=== PATIENT | male | born 1985 | race Caucasian/White ===

== ENCOUNTER 2023-01-29 13:43 | Inpatient (IN) ==
[2023-01-29] MEDS ORDERED: IOPAMIDOL 100 ML BOTTLE IV ONE (13:44)
[2023-01-29 14:25] LABS: POC Calcium, Ionized 1.15 (1.16-1.32); POC Creatinine 0.8 (0.6-1.2); POC Potassium 3.9 (3.3-5.1)
[2023-01-29] MEDS ORDERED: 0.9 % SODIUM CHLORIDE 1,000 ML IV ONE (14:31)
[2023-01-29] MEDS ORDERED: KETOROLAC 30 MG/ML VIAL IV ONE (14:31)
--- NOTE | 2023-01-29 14:42 | Emergency Department Note ---
Abdominal Pain HPI General Chief Complaint: Abdominal Pain Stated Complaint: rib pain Time Seen by Provider: 01/29/23 13:49 Source: patient Mode of arrival: ambulatory Limitations: no limitations History of Present Illness HPI Narrative: The patient is a 37-year-old male with a history of diabetes and chronic back pain who presents to the ED with right-sided abdominal pain. Pain started 3 days ago but is worse today. No nausea, vomiting, diarrhea, constipation. Last BM was this afternoon. Pain is worsened when he coughs, moves, and takes a deep breath. No fevers. No dysuria or hematuria. Related Data Home Medications Medication Instructions Recorded Confirmed dapagliflozin 5 mg tablet (Farxiga) 5 mg PO QDAY 01/29/23 01/29/23 ergocalciferol (vitamin D2) 1,250 1,250 mcg PO DAILY 01/29/23 01/29/23 mcg (50,000 unit) capsule (Vitamin D2) hydrocodone 5 mg-acetaminophen 325 1 tab PO Q4 01/29/23 01/29/23 mg tablet loratadine 10 mg tablet 10 mg PO QDAY 01/29/23 01/29/23 Allergies Allergy/AdvReac Type Severity Reaction Status Date / Time meloxicam [From Mobic] AdvReac Mild Nausea Verified 01/29/23 13:48 tramadol [From Ultram] AdvReac Mild Nausea Verified 01/29/23 13:48 Review of Systems ROS ROS Narrative: Narrative: All systems ED: reviewed and negative except as stated. 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) Asthma (Chronic) Radiculopathy, lumbosacral region (Chronic) Other low back pain (Chronic) Low back pain radiating to right leg (Chronic) Lumbar strain (Chronic) Lumbar radiculopathy (Chronic) Abdominal pain (Chronic) Spasm of muscle of lower back (Chronic) Medical History (Updated 01/29/23 @ 16:56 by Natanael Mathis MD) Abdominal pain Anxiety Asthma Calculus of kidney Depression Elevated blood pressure reading without diagnosis of hypertension Heart murmur History of Hollins's palsy Hyperglycemia Hypertension Insomnia Low back pain radiating to right leg Lumbar radiculopathy Lumbar strain Obesity with body mass index 30 or greater Other low back pain Pars defect without spondylolisthesis Radiculopathy, lumbosacral region Spasm of muscle of lower back Type II diabetes mellitus, uncontrolled Surgical History (Updated 01/21/22 @ 15:49 by Aydee Nair) History of knee surgery (~2009) History of lumbar spinal fusion (~2018) History of removal of cyst (~2012) sebaceous cyst-right hand History of surgery 08/04 TF NABIL #1 Lt. L5-S1 w/o sed 08/06/201909/03 TF NABIL #2 Rt L5-S1 w/o sed 09/06/201807/04 LESI #1 L5-S1 w/o sed 07/03/18 Family History (Updated 01/07/22 @ 15:32 by Taisha Vincent) Mother Hypertensive disorder Obesity Social History Smoking Status: Never smoker Alcohol Intake Frequency: does not drink Substance Use: does not use Exam Narrative Narrative: Constitutional: Well-nourished, well-developed. No acute distress. HEENT: Normocephalic. Atraumatic. EOMI. Conjunctive are clear bilaterally. Cardiovascular: Rapid rate. Regular rhythm. No murmurs, rubs, gallops. Pulmonary: No increased work of breathing. Lung sounds clear to auscultation bilaterally. No wheezing, rales, or rhonchi. Abdomen: Soft, nondistended. TTP in the right mid abdomen and right flank. No tenderness over McBurney's point. Patient does report right lower quadrant pain with palpation of the left lower quadrant. Negative psoas sign. No guarding. No rebound tenderness or peritoneal signs. Normal bowel sounds throughout. No HSM. Musculoskeletal: Normal muscular development. No obvious deformities. Skin: Warm, dry. No rash. Neurologic: Awake, alert, and oriented. Motor function grossly intact. Afocal. General Limitations: no limitations Course Course Course Narrative: The patient is HD stable. He is nontoxic-appearing. Pain is currently well controlled with Toradol at home. He was given 1 L NS. Labs reviewed and are n otable for a mildly elevated ALT (patient has history of elevated LFTs per review of medical records) and elevated total bilirubin of 2.1. WBC is 10.8. CT abdomen/pelvis shows findings consistent with acute appendicitis. Case was discussed with Dr. Taye Lezama, on-call for general surgery who accepts patient for admission. Patient was started on Zosyn. He is to be made n.p.o. at midnight. Holding orders were placed. Reevaluation(s) Reevaluation #1: Patient remains HD stable. Pain tolerable with Toradol. Time: 16:35 Consultations Consultation #1: Dr. Lezama with general surgery who accepts patient for admission for acute appendicitis Time: 16:40 Vital Signs Vital signs: Vital Signs Temperature 97.2 F 01/29/23 13:46 Pulse Rate 105 H 01/29/23 13:46 Respiratory Rate 16 01/29/23 13:46 Blood Pressure 134/94 01/29/23 13:46 Pulse Oximetry (%) 95 01/29/23 13:46 Oxygen Delivery Method Room Air 01/29/23 13:46 Temperature 97.2 F 01/29/23 13:46 Pulse Rate 80 01/29/23 15:13 Respiratory Rate 16 01/29/23 13:46 Blood Pressure 140/80 01/29/23 15:01 Pulse Oximetry (%) 94 01/29/23 15:13 Oxygen Delivery Method Room Air 01/29/23 13:46 MDM MDM Narrative Medical decision making narrative: Narrative: Sepsis Sepsis Identified: No Differential Diagnosis Differential Diagnosis: Cholecystitis, biliary colic, colitis, appendicitis, muscle strain Medical Records Medical records reviewed: Yes I reviewed the patient's medical records. Medical records narrative: ED note from 09/14/2016 - patient was seen for abdominal pain with unknown underlying etiology Lab Data Lab results reviewed: Yes I reviewed the patient's lab results. 01/29/23 14:21 Labs: Lab Results 01/29/23 01/29/23 01/29/23 Range/Units 14:20 14:20 14:21 WBC 10.8 (4.5-11.0) K/mcL RBC 5.24 (4.63-6.08) M/mcL Hgb 15.7 (13.7-17.5) g/dL Hct 45.3 (40.1-51.0) % POC Hct 47.0 (41-55) MCV 86.5 (80.0-100.0) fL MCH 30.0 (26.0-34.0) pg MCHC 34.7 (31.0-36.0) g/dL RDW 12.6 (11.5-14.5) % Plt Count 229 (140-440) K/mcL MPV 11.0 (8.8-12.5) fL Immature Gran % (Auto) 0.3 (0.0-0.5) % Neut % (Auto) 70.9 (38.0-78.0) % Lymph % (Auto) 17.4 (15.5-49.0) % Park % (Auto) 10.1 (1.0-12.0) % Eos % (Auto) 1.1 (0.0-7.0) % Baso % (Auto) 0.2 (0.0-2.0) % Lymph # (Auto) 1.87 (1.50-4.80) K/mcL Park # (Auto) 1.09 H (0.10-0.90) K/mcL Eos # (Auto) 0.12 (0.00-0.70) K/mcL Baso # (Auto) 0.02 (0.00-0.30) K/mcL Immature Gran # 0.03 (0.00-0.05) K/mcl Absolute Neutrophils 7.62 (1.80-8.00) K/mcL POC Sodium 139 (133-145) POC Potassium 3.9 (3.3-5.1) POC Chloride 103 (96-108) POC Total CO2 25.0 (22-30) POC BUN 6 (6-20) POC Creatinine 0.8 (0.6-1.2) POC Glucose 195 H (70-105) POC WB Ioniz Calcium 1.15 L (1.16-1.32) Total Bilirubin 2.1 H (0.1-1.0) mg/dL Direct Bilirubin 0.2 (<0.3) mg/dL AST 36 (<40) U/L ALT 51 H (<40) U/L Alkaline Phosphatase 82 (39-117) U/L Total Protein 6.8 (5.9-8.4) gm/dL Albumin 4.1 (3.2-5.2) gm/dL Globulin 2.7 (2.2-3.7) gm/dL Lipase 22 (7-60) U/L Radiology Data Radiology results reviewed: Yes I reviewed the patient's radiology results. Radiology results narrative: [facility] NAME: Luis Soto [address] [place] [address] : 1985 [address] Service Date: 01/29/23 Report # [id number] [place] [address] William Christina M.D. MR #: [id number] Cat Scan Report Signed Ordering Physician:Natanael Mathis M.D. Date of Service:01/29/23 Procedure(s):CT Abd/Pelvis w Con (IV Only) CLINICAL INFORMATION: Right upper quadrant pain COMPARISON: Abdomen and pelvic CT 09/15/2016 TECHNIQUE: Enteric contrast was utilized. 80 cc of Isovue-370 were injected intravenously, and 50 seconds later, 0.625 mm helical slices were obtained from the mid heart through the subtrochanteric regions of the femurs. . Following reconstruction, 2.5 mm sagittal, coronal and axial reformatted images were processed and reviewed at bone, lung and soft tissue windows. Five minutes later, 0.625 mm helical slices were obtained from the mid heart through the kidneys and viewed at soft tissue windows.The exam was performed using radiation dose optimization techniques including, but not limited to, automated exposure control, adjustment of the mA and/or kV according to patient size and use of iterative reconstruction technique. FINDINGS: Lung bases are clear. There are no effusions. The visualized heart is grossly normal in size. Abdominal images show moderate fatty change within the liver, but no focal hepatic lesions. The gallbladder and bile ducts are normal colon CBD is 5 mm. The pancreas, spleen and aorta including aortic branches are normal in size, configuration and attenuation without focal lesion. There is a 20 mm indeterminate solid cystic lesion in the anterior mid right kidney. The remainder of both kidneys is normal. A 18 mm benign adenoma left adrenal gland is stable. Right adrenal gland is normal. There is no free air, free fluid or adenopathy. Pelvic images show prostate, seminal vesicles and urinary bladder to be normal. There is moderate submucosal fat infiltration throughout the colon particularly the transverse colon and the ascending colon. Moderate inflammation is seen in the lateral right pericolonic fat with thickening of the lateral conal fascia. The patient does not have a history of appendectomy: there is likely an inflamed appendix within this inflammation, however it is extremely poorly visualized. The small bowel and stomach are normal. Bone windows show chronic bilateral L5 spondylolysis treated with anterior/posterior fusion and wide laminectomy. No other osseous abnormality. IMPRESSION: 1. Simple appendicitis. Appendix is located in the lateral pericecal region. 2. 20 mm indeterminate solid cystic lesion in the anterior cortex mid right kidney. Suggest ultrasound for further evaluation. 3. 18 mm benign adenoma left adrenal gland is stable 4. Moderate fatty change within the liver. 5. L5-S1 spondylolysis with grade 1 spondylolisthesis successfully treated with anterior/posterior fusion. Discharge Plan Patient/Caregiver Discharge Instructions Pt seen by [facility]/PA only: No Clinical Impression: Appendicitis Patient Disposition: Xfer As Inpt ([facility]) Condition: Good Follow up with: Alexa Shaw NP-C [Primary Care Provider] - Prescriptions: No Action hydrocodone-acetaminophen 5-325 mg tablet 1 tab PO Q4 ergocalciferol (vitamin D2) 1,250 mcg (50,000 unit) capsule 1,250 mcg PO loratadine 10 mg tablet 10 mg PO QDAY Farxiga 5 mg tablet 5 mg PO QDAY
[2023-01-29 15:04] LABS: Basophils # (Auto) 0.02 K/mcL (0.00-0.30); Basophils % (Auto) 0.2 % (0.0-2.0); Eosinophils # (Auto) 0.12 K/mcL (0.00-0.70); Eosinophils % (Auto) 1.1 % (0.0-7.0); Hematocrit 45.3 % (40.1-51.0); Hemoglobin 15.7 g/dL (13.7-17.5); Lymphocytes # (Auto) 1.87 K/mcL (1.50-4.80); Lymphocytes % (Auto) 17.4 % (15.5-49.0); Mean Cell Volume 86.5 fL (80.0-100.0); Mean Corpuscular HGB Conc 34.7 g/dL (31.0-36.0); Monocytes # (Auto) 1.09 K/mcL (0.10-0.90); Monocytes % (Auto) 10.1 % (1.0-12.0); Neutrophils % (Auto) 70.9 % (38.0-78.0); Platelet Count 229 K/mcL (140-440); RBC 5.24 M/mcL (4.63-6.08); Red Cell Distribution Width 12.6 % (11.5-14.5); WBC 10.8 K/mcL (4.5-11.0)
[2023-01-29 15:36] LABS: ALT/SGPT 51 U/L (<40); AST/SGOT 36 U/L (<40); Albumin 4.1 gm/dL (3.2-5.2); Alkaline Phosphatase 82 U/L (39-117); Bilirubin,Direct 0.2 mg/dL (<0.3); Bilirubin,Total 2.1 mg/dL (0.1-1.0); Globulin 2.7 gm/dL (2.2-3.7)
--- NOTE | 2023-01-29 16:14 | Cat Scan Report ---
CLINICAL INFORMATION: Right upper quadrant pain COMPARISON: Abdomen and pelvic CT 09/15/2016 TECHNIQUE: Enteric contrast was utilized. 80 cc of Isovue-370 were injected intravenously, and 50 seconds later, 0.625 mm helical slices were obtained from the mid heart through the subtrochanteric regions of the femurs. . Following reconstruction, 2.5 mm sagittal, coronal and axial reformatted images were processed and reviewed at bone, lung and soft tissue windows. Five minutes later, 0.625 mm helical slices were obtained from the mid heart through the kidneys and viewed at soft tissue windows.The exam was performed using radiation dose optimization techniques including, but not limited to, automated exposure control, adjustment of the mA and/or kV according to patient size and use of iterative reconstruction technique. FINDINGS: Lung bases are clear. There are no effusions. The visualized heart is grossly normal in size. Abdominal images show moderate fatty change within the liver, but no focal hepatic lesions. The gallbladder and bile ducts are normal colon CBD is 5 mm. The pancreas, spleen and aorta including aortic branches are normal in size, configuration and attenuation without focal lesion. There is a 20 mm indeterminate solid cystic lesion in the anterior mid right kidney. The remainder of both kidneys is normal. A 18 mm benign adenoma left adrenal gland is stable. Right adrenal gland is normal. There is no free air, free fluid or adenopathy. Pelvic images show prostate, seminal vesicles and urinary bladder to be normal. There is moderate submucosal fat infiltration throughout the colon particularly the transverse colon and the ascending colon. Moderate inflammation is seen in the lateral right pericolonic fat with thickening of the lateral conal fascia. The patient does not have a history of appendectomy: there is likely an inflamed appendix within this inflammation, however it is extremely poorly visualized. The small bowel and stomach are normal. Bone windows show chronic bilateral L5 spondylolysis treated with anterior/posterior fusion and wide laminectomy. No other osseous abnormality. IMPRESSION: 1. Simple appendicitis. Appendix is located in the lateral pericecal region. 2. 20 mm indeterminate solid cystic lesion in the anterior cortex mid right kidney. Suggest ultrasound for further evaluation. 3. 18 mm benign adenoma left adrenal gland is stable 4. Moderate fatty change within the liver. 5. L5-S1 spondylolysis with grade 1 spondylolisthesis successfully treated with anterior/posterior fusion. Interpreted and Authenticated by: William Christina 01/29/23
[2023-01-29] MEDS ORDERED: morphine 4 MG/ML VIAL IV PRN (16:40)
[2023-01-29] MEDS ORDERED: ACETAMINOPHEN 325 MG TABLET PO PRN (16:40)
[2023-01-29] MEDS ORDERED: DEXTROSE 31 GM ORAL.SUSP PO PRN (16:40)
[2023-01-29] MEDS ORDERED: ONDANSETRON 4 MG/2 ML VIAL IV PRN (16:40)
[2023-01-29] MEDS ORDERED: DEXTROSE 50% 50 ML VIAL IV PRN (16:40)
[2023-01-29] MEDS ORDERED: SENNOSIDES 1 TABLET PO PRN (16:45)
[2023-01-29] MEDS ORDERED: DOCUSATE SODIUM 100 MG CAPSULE PO PRN (16:45)
[2023-01-29] MEDS: PIPERACILLIN SODIUM/TAZOBACTAM 3.375 GM in DEXTROSE 5% IN WATER 50 ML IV SCH (17:08)
--- NOTE | 2023-01-29 19:31 | General Surg History&Physical ---
HPI History of Present Illness Patient information: Note initiated : 01/29/23 at 7:29 pm Service Date, if different from initiated Date: [] Patient: Luis Soto a 37 y/o M admitted on 01/29/23 for rib pain. Chief Complaint: [] Chief complaint: Right-sided abdominal pain History of present illness: Mr. Soto is a 37 year old M with onset of right side abdominal pain laterally above the level of the umbilicus. It started on and has persisted since that time. He denies nausea vomiting. He has been afebrile. He does not have leukocytosis. There has been no change in bowel habits. He has not had similar symptoms in the past. CT shows thickening of the bowel wall IN the ascending and transverse colon with some wall thickening in the lateral mid ascending colon with surrounding tissue edema. The appendix is not seen. He has point tenderness in this area on exam and this is the area where he has had all of his discomfort. The rest of his abdominal exam is benign. 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) Asthma (Chronic) Radiculopathy, lumbosacral region (Chronic) Other low back pain (Chronic) Low back pain radiating to right leg (Chronic) Lumbar strain (Chronic) Lumbar radiculopathy (Chronic) Abdominal pain (Chronic) Spasm of muscle of lower back (Chronic) Medical History Abdominal pain Anxiety Asthma Calculus of kidney Depression Elevated blood pressure reading without diagnosis of hypertension Heart murmur History of Hollins's palsy Hyperglycemia Hypertension Insomnia Low back pain radiating to right leg Lumbar radiculopathy Lumbar strain Obesity with body mass index 30 or greater Other low back pain Pars defect without spondylolisthesis Radiculopathy, lumbosacral region Spasm of muscle of lower back Type II diabetes mellitus, uncontrolled Surgical History History of knee surgery (~2009) History of lumbar spinal fusion (~2018) History of removal of cyst (~2012) sebaceous cyst-right hand History of surgery 08/04 TF NABIL #1 Lt. L5-S1 w/o sed 08/06/201909/03 TF NABIL #2 Rt L5-S1 w/o sed 09/06/201807/04 LESI #1 L5-S1 w/o sed 07/03/18 Family History Mother Hypertensive disorder Obesity Social History marital status: education level: high school occupational status: unemployed smoking status: Never smoker alcohol intake frequency: does not drink substance use type: does not use MEDS/ALLERGIES Home Medications and Allergies Home Medications Medication Instructions Recorded Confirmed Type dapagliflozin 5 mg tablet (Farxiga) 5 mg PO QDAY 01/29/23 01/29/23 History ergocalciferol (vitamin D2) 1,250 1,250 mcg PO DAILY 01/29/23 01/29/23 History mcg (50,000 unit) capsule (Vitamin D2) hydrocodone 5 mg-acetaminophen 325 1 tab PO Q4 01/29/23 01/29/23 History mg tablet loratadine 10 mg tablet 10 mg PO QDAY 01/29/23 01/29/23 History Allergies Allergy/AdvReac Type Severity Reaction Status Date / Time meloxicam [From Mobic] AdvReac Mild Nausea Verified 01/29/23 13:48 tramadol [From Ultram] AdvReac Mild Nausea Verified 01/29/23 13:48 Physical Examination Vital Signs Vital signs: Temp Pulse Resp BP Pulse Ox O2 Del Method 97.2 F 84 16 131/83 97 Room Air 01/29/23 17:48 01/29/23 17:48 01/29/23 17:48 01/29/23 17:48 01/29/23 17:48 01/29/23 13:46 General physical appearance General physical exam: well developed, well nourished, no distress, moderate pain and obese Eyes Eye exam: PERRL and normal ocular movement ENT ENT exam: normal nares, normal mucosa, no hearing loss and no congestion Head Head exam IM: Present atraumatic, normal inspection and normocephalic Neck Neck exam: no masses, no bruits, trachea midline, no lymphadenopathy and no venous distension Cardiovascular Cardiovascular exam IM: Present normal rate and rhythm, RRR, +S1 and +S2; Absent JVD Respiratory Respiratory exam: normal expansion, normal respiratory effort and clear to auscultation Abdomen Abdomen: Present soft and tender (Tenderness to palpation right lateral abdomen at level of umbilicus extending into the CVA region); Absent guarding, rigid, rebound or distended Integumentary Integumentary: Present no rash, no growths and no abnormal pigmentation Neurologic Neurologic: Present normal coordination and normal sensation Musculoskeletal Musculoskeletal: Present normal gait, normal posture and other Psychiatric Psychiatric: Present oriented to time, oriented to person, oriented to place, speech is normal and memory intact Results Labs 01/29/23 14:21 Labs: Abnormal lab results 01/29/23 01/29/23 01/29/23 Range/Units 14:20 14:20 14:21 [place] # (Auto) 1.09 H (0.10-0.90) K/mcL POC Glucose 195 H (70-105) POC WB Ioniz Calcium 1.15 L (1.16-1.32) Total Bilirubin 2.1 H (0.1-1.0) mg/dL ALT 51 H (<40) U/L Diabetes panel 01/29/23 Range/Units 14:20 AST 36 (<40) U/L ALT 51 H (<40) U/L Alkaline Phosphatase 82 (39-117) U/L Total Protein 6.8 (5.9-8.4) gm/dL Albumin 4.1 (3.2-5.2) gm/dL Calcium panel 01/29/23 Range/Units 14:20 Albumin 4.1 (3.2-5.2) gm/dL Adrenal panel 01/29/23 Range/Units 14:20 Total Bilirubin 2.1 H (0.1-1.0) mg/dL AST 36 (<40) U/L ALT 51 H (<40) U/L Alkaline Phosphatase 82 (39-117) U/L Total Protein 6.8 (5.9-8.4) gm/dL Albumin 4.1 (3.2-5.2) gm/dL All other labs normal. A/P Assessment and plan (1) Acute appendicitis: Status: Acute (2) Type II diabetes mellitus, uncontrolled: Status: Chronic (3) Nonspecific colitis: Status: Acute Plan Zosyn 3.375 g IV every 6 hours N.p.o. after midnight Scheduled for laparoscopy with appendectomy in the a.m. Sepsis Sepsis Identified: No Time Spent With Patient Time: Total time spent is greater than 50% in coordination of care (as documented) at patient's floor/unit and/or counseling patient:
[2023-01-29 19:47] LABS: CRP,High Sensitivity 6.8 mg/L (1.0-3.0)
[2023-01-29] MEDS ORDERED: LACTATED RINGERS 1,000 ML IV SCH (20:00)
[2023-01-29] MEDS: INSULIN LISPRO 1 UNIT/0.01 ML UNIT SQ SCH ×2 (21:59→22:42)
[2023-01-29] MEDS: 0.9 % SODIUM CHLORIDE 10 ML SYRINGE IV SCH (21:59)
[2023-01-30] MEDS: PIPERACILLIN SODIUM/TAZOBACTAM 3.375 GM in DEXTROSE 5% IN WATER 50 ML IV SCH ×5 (00:53→23:17)
[2023-01-30] MEDS: HYDROmorphone 1 MG/ML SYRINGE IV PRN ×2 (00:54→14:46)
[2023-01-30] MEDS: 0.9 % SODIUM CHLORIDE 10 ML SYRINGE IV SCH ×3 (05:51→20:43)
[2023-01-30 05:55] LABS: Basophils # (Auto) 0.03 K/mcL (0.00-0.30); Basophils % (Auto) 0.2 % (0.0-2.0); Eosinophils # (Auto) 0.14 K/mcL (0.00-0.70); Eosinophils % (Auto) 1.2 % (0.0-7.0); Hematocrit 41.3 % (40.1-51.0); Hemoglobin 14.1 g/dL (13.7-17.5); Lymphocytes # (Auto) 3.14 K/mcL (1.50-4.80); Lymphocytes % (Auto) 25.8 % (15.5-49.0); Mean Cell Volume 87.9 fL (80.0-100.0); Mean Corpuscular HGB Conc 34.1 g/dL (31.0-36.0); Mean Platelet Volume 10.7 fL (8.8-12.5); Monocytes # (Auto) 1.36 K/mcL (0.10-0.90); Monocytes % (Auto) 11.2 % (1.0-12.0); Neutrophils % (Auto) 61.4 % (38.0-78.0); Platelet Count 228 K/mcL (140-440); Red Cell Distribution Width 12.6 % (11.5-14.5); WBC 12.2 K/mcL (4.5-11.0)
[2023-01-30] MEDS: INSULIN LISPRO 1 UNIT/0.01 ML UNIT SQ SCH ×4 (07:24→20:44)
[2023-01-30] MEDS ORDERED: SCOPOLAMINE 1 PATCH PATCH TOPICAL PRN (10:00)
[2023-01-30] MEDS ORDERED: IPRATROPIUM/ALBUTEROL 3 ML AMPUL.NEB NEB PRN ×2 (10:00→11:23)
[2023-01-30] MEDS ORDERED: HYDROmorphone 1 MG/ML SYRINGE ONE (10:56)
[2023-01-30] MEDS ORDERED: SUGAMMADEX SODIUM 200 MG/2 ML VIAL IV ONE (10:56)
[2023-01-30] MEDS ORDERED: LIDOCAINE HCL/PF 100 MG/5 ML SYRINGE IV ONE (10:56)
[2023-01-30] MEDS ORDERED: ONDANSETRON 4 MG/2 ML VIAL ONE (10:56)
[2023-01-30] MEDS ORDERED: PROPOFOL 200 MG/20 ML VIAL IV ONE (10:56)
[2023-01-30] MEDS ORDERED: SUCCINYLCHOLINE 20 MG/ML ML IV ONE (10:56)
[2023-01-30] MEDS ORDERED: GLYCOPYRROLATE 0.2 MG/ML VIAL IV ONE (10:56)
[2023-01-30] MEDS ORDERED: ROCURONIUM 10 MG/ML ML IV ONE (10:56)
[2023-01-30] MEDS ORDERED: fentaNYL 100 MCG/2 ML VIAL IV ONE (10:56)
[2023-01-30] MEDS ORDERED: KETAMINE 50 MG/ML Syringe (ANEST) IV ONE (10:56)
[2023-01-30] MEDS ORDERED: DEXAMETHASONE 10 MG/ML VIAL ONE (10:56)
[2023-01-30] MEDS ORDERED: MAGNESIUM SULFATE 2 GM/50 ML BAG IV ONE (10:56)
[2023-01-30] MEDS ORDERED: MIDAZOLAM 2 MG/2 ML VIAL ONE (10:56)
[2023-01-30] MEDS ORDERED: FLUMAZENIL 0.1 MG/ML ML IV PRN (11:23)
[2023-01-30] MEDS ORDERED: HYDROmorphone 0.5 MG/0.5 ML SYRINGE IV PRN (11:23)
[2023-01-30] MEDS ORDERED: ONDANSETRON 4 MG/2 ML VIAL IV PRN (11:23)
[2023-01-30] MEDS ORDERED: NALOXONE HCL 0.4 MG/ML VIAL IV PRN (11:23)
[2023-01-30] MEDS ORDERED: MEPERIDINE 25 MG/ML VIAL IV PRN (11:23)
[2023-01-30] MEDS ORDERED: fentaNYL 100 MCG/2 ML VIAL IV PRN (11:23)
[2023-01-30] MEDS ORDERED: LACTATED RINGERS 250 ML IV PRN (11:23)
[2023-01-30] MEDS ORDERED: METHOCARBAMOL 1,000 MG/10 ML VIAL IV PRN (11:23)
[2023-01-30] MEDS ORDERED: METOPROLOL TARTRATE 5 MG/5 ML VIAL IV PRN (11:23)
[2023-01-30] MEDS ORDERED: BENZOCAINE/MENTHOL 1 LOZENGE PO PRN (11:23)
[2023-01-30] MEDS ORDERED: ACETAMINOPHEN 1,000 MG/100 ML BAG IV ONE (11:23)
[2023-01-30] MEDS ORDERED: LABETALOL 5 MG/ML ML IV PRN (11:23)
[2023-01-30] MEDS ORDERED: LACTATED RINGERS 1,000 ML IV SCH (11:30)
--- NOTE | 2023-01-30 11:51 | Brief Operative Note ---
Brief Operative Note Date of procedure: 01/30/23 Pre-op diagnosis: acute appendicitis;nonspecific colitis Post-op diagnosis: other (nonspecific colitis; normal appendix) Procedure: diagnostic laparoscopy with appendectomy Grafts/Implants: No Anesthesia: GETA Findings: normal appendix ;inflammation of ascending colon and cecum hemorrhagic fluid in pelvis no purulence noted Complications: none Surgeon: Rancho Lezama Estimated blood loss (cc): 5 Specimens Removed/Pathology: other (pelvic fluid sent for cytology and c&s) Condition: stable Disposition: PACU
[2023-01-30] MEDS: HYDROcodone/APAP 5/325MG TABLET PO PRN ×3 (13:35→23:54)
[2023-01-30] MEDS: methylPREDNISolone SOD SUCC 125 MG/2 ML VIAL IV SCH (20:43)
[2023-01-31] MEDS: PIPERACILLIN SODIUM/TAZOBACTAM 3.375 GM in DEXTROSE 5% IN WATER 50 ML IV SCH ×2 (06:01→12:17)
[2023-01-31] MEDS: 0.9 % SODIUM CHLORIDE 10 ML SYRINGE IV SCH ×2 (06:02→14:18)
[2023-01-31 06:42] LABS: Basophils # (Auto) 0.01 K/mcL (0.00-0.30); Basophils % (Auto) 0.1 % (0.0-2.0); Eosinophils # (Auto) 0 K/mcL (0.00-0.70); Eosinophils % (Auto) 0 % (0.0-7.0); Hematocrit 43.5 % (40.1-51.0); Hemoglobin 14.8 g/dL (13.7-17.5); Lymphocytes # (Auto) 1.39 K/mcL (1.50-4.80); Lymphocytes % (Auto) 9.3 % (15.5-49.0); Mean Cell Volume 87.7 fL (80.0-100.0); Mean Platelet Volume 10.8 fL (8.8-12.5); Monocytes # (Auto) 0.48 K/mcL (0.10-0.90); Monocytes % (Auto) 3.2 % (1.0-12.0); Neutrophils % (Auto) 86.8 % (38.0-78.0); Platelet Count 268 K/mcL (140-440); RBC 4.96 M/mcL (4.63-6.08); Red Cell Distribution Width 12.1 % (11.5-14.5); WBC 14.9 K/mcL (4.5-11.0)
[2023-01-31 07:13] LABS: ALT/SGPT 37 U/L (<40); AST/SGOT 29 U/L (<40); Albumin 3.9 gm/dL (3.2-5.2); Albumin/Globulin Ratio 1.4 (1.0-2.3); Alkaline Phosphatase 77 U/L (39-117); Bilirubin,Direct 0.3 mg/dL (<0.3); Bilirubin,Total 1.5 mg/dL (0.1-1.0); Blood Urea Nitrogen 9 mg/dL (6-20); Carbon Dioxide 20 mmol/L (22-30); Chloride 100 mmol/L (96-108); Globulin 2.8 gm/dL (2.2-3.7); Glomerular Filtration Rate 120; Glucose 179 mg/dL (70-105); Lactate Dehydrogenase 173 U/L (135-225); Phosphorous 3.7 mg/dL (2.5-4.5); Triglycerides 98 mg/dL (<150); Uric Acid 4.1 mg/dL (2.5-8.0)
[2023-01-31] MEDS: INSULIN LISPRO 1 UNIT/0.01 ML UNIT SQ SCH ×2 (07:41→12:16)
[2023-01-31] MEDS: methylPREDNISolone SOD SUCC 125 MG/2 ML VIAL IV SCH (08:56)
[2023-01-31] MEDS ORDERED: BUDESONIDE 3 MG CAP.XL.24H PO SCH (09:00)
--- NOTE | 2023-01-31 14:52 | Discharge Summary ---
Discharge Provider Provider IMPORTANT FOLLOW-UP INFORMATION FOR PCP: Patient information: Note initiated : 01/31/23 at 2:45 pm Service Date, if different from initiated Date: [] Patient: Luis Soto 37 y/o M admitted on 01/30/23 for rib pain. Chief Complaint: [] Date of admission: 01/30/23 11:58 Discharge date: 01/31/23 Primary care physician: Alexa Shaw NP Admitting clinician: Rancho Lezama Attending physician on admission: Rancho Lezama Consults: 01/29/23 Consult to Physician [CONS] Stat Comment: Consulting Provider: Rancho Lezama Reason For Exam: Physician to Consult Attending physician on discharge: Rancho Lezama Discharging clinician: Rancho Lezama COURSE Hospital Course Hospital course: 37-year-old male with history of onset of right-sided abdominal pain. The pain is about the level of the umbilicus and radiates laterally to the flank. He had nausea but no vomiting. He was seen in the emergency room for CT scan suggest possible retrocecal appendicitis. The CT also showed thickening of the wall of the cecum and ascending colon. Appendix was not definitively seen. Patient was monitored overnight and was counseled for appendectomy. Diagnostic laparoscopy was done and it showed a normal appendix but there was thickening of the serosa of the cecum and ascending colon with some blood in the right gutter and in the pelvis. No purulence was noted. The colon was evaluated up to the hepatic flexure with some thickening but no acute infection. It was felt that the patient may have acute nonspecific colitis. The left colon appeared to be normal. The small bowel was also normal. Appendectomy was done and the right gutter and pelvis were irrigated with culture of the fluid. Postoperatively he was continued on antibiotics and was started on Solu-Medrol. Review of his x- ray with radiology today also suggest that he have acute appendagitis which may be the reason for blood in the peritoneal cavity due to an infarcted appendiceal epiploica. Patient is clinically stable and is discharged home. He will receive 7 days of prednisone and 7 days of Levaquin. He will be followed up in the office in 2 weeks. Discharge diagnosis: Nonspecific colitis Secondary discharge diagnosis: Infarcted appendiceal epiploica Reason for admission: Right-sided abdominal pain Procedures: Diagnostic laparoscopy with appendectomy Complications: None Time Spent with Patient Time attestation: Total time spent providing and/or coordinating discharge services: Time spent: Less than 30 minutes Physical Examination Vital Signs Vital signs: Temp Pulse Resp BP Pulse Ox O2 Del Method O2 Flow Rate 96.3 F L 97 H 18 126/70 95 Room Air 6 01/31/23 12:00 01/31/23 12:00 01/31/23 12:00 01/31/23 12:00 01/31/23 12:00 01/31/23 12:00 01/30/23 12:03 General physical appearance General physical exam: well developed, well nourished, moderate distress and moderate pain Eyes Eye exam: PERRL and normal ocular movement ENT ENT exam: normal mucosa Head Head exam IM: Present atraumatic, normal inspection and normocephalic Neck Neck exam: no masses, no bruits, trachea midline, no lymphadenopathy and no venous distension Cardiovascular Cardiovascular exam IM: Present RRR, +S1 and +S2; Absent JVD Respiratory Respiratory exam: normal expansion, normal respiratory effort and clear to auscultation Abdomen Abdomen: Present non tender, bowel sounds (Normal bowel sounds) and surgical scars (Mild tenderness of port sites) Integumentary Integumentary: Present no rash, no growths and no abnormal pigmentation Neurologic Neurologic: Present normal coordination and normal sensation Musculoskeletal Musculoskeletal: Present normal gait and normal posture Psychiatric Psychiatric: Present oriented to time, oriented to person, oriented to place, speech is normal and memory intact Discharge Plan Patient/Caregiver Discharge Instructions Activity: increase activity as tolerated Diet: Regular Diet Activity Restrictions/Additional Instructions: You will be contacted by Dr. Rancho Lezama's office to schedule a follow up appointment to be seen within 2 weeks. Prescriptions: New levofloxacin [levofloxacin] 750 mg tablet 750 mg PO DAILY Qty: 10 0RF prednisone 20 mg tablet 10 mg PO BID Qty: 14 0RF Continued hydrocodone-acetaminophen 5-325 mg tablet 1 tab PO Q4 ergocalciferol (vitamin D2) [Vitamin D2] 1,250 mcg (50,000 unit) capsule 1,250 mcg PO DAILY loratadine 10 mg tablet 10 mg PO QDAY Farxiga 5 mg tablet 5 mg PO QDAY Prescription drug monitoring program results: PDMP not reviewed Follow Up Plan Follow up with: Rancho Lezama MD [Physician] - Alexa Shaw NP-C [Primary Care Provider] - Patient Disposition: Home, Self-Care Prognosis: Good Rehab Potential: Good I certify that the patient requires SNF services: No Overall status at discharge: patient is progressing back to baseline Discharge Orders: Discharge Order (Routine); Ordered 01/31/23 Ordered By: Rancho Lezama Pending Pending Pending: Resuscitation Status Resuscitate (Full Code) Diet Regular Diet Start TueJan 31 0800 Hydrocodone Bitart/Acetaminophen (Hydrocodone/Apap 5/325mg Tablet) 1 tab PO Q4HP PRN; Protocol PRN Reason: Per Pain Protocol Last Admin: 01/30/23 23:54 Dose: 1 tab Documented By: Admin: 01/30/23 17:39 Dose: 1 tab Documented By: Admin: 01/30/23 13:35 Dose: 1 tab Documented By: NIRMALA Budesonide (Budesonide 3 Mg Cap.Xl.24h) 6 mg PO DAILY [facility] Last Admin: 01/31/23 08:56 Dose: 6 mg Documented By: ERI Diagnostic Test (Pha) (Accu-Chek 1 Each Strip) 1 each FS ACHS [facility] Last Admin: 01/31/23 12:16 Dose: 1 each Documented By: Admin: 01/31/23 07:41 Dose: 1 each Documented By: Admin: 01/30/23 20:35 Dose: 1 each Documented By: Admin: 01/30/23 16:51 Dose: 1 each Documented By: Admin: 01/30/23 12:39 Dose: Not Given Documented By: Admin: 01/30/23 07:17 Dose: 1 each Documented By: Admin: 01/29/23 22:43 Dose: Not Given Documented By: Admin: 01/29/23 21:58 Dose: 1 each Documented By: SHANON Hydromorphone HCl (Hydromorphone 1 Mg/Ml Syringe) 1 mg IV Q2HP PRN; Protocol PRN Reason: Per Pain Protocol Last Admin: 01/30/23 14:46 Dose: 1 mg Documented By: Admin: 01/30/23 00:54 Dose: 1 mg Documented By: SHANON Piperacillin Sod/Tazobactam (Sod 3.375 gm/ Dextrose) 50 mls @ 100 mls/hr IV Q6H DONALD; Protocol Last Infusion: 01/31/23 13:00 Dose: 0 mls/hr Documented By: Infusion: 01/31/23 12:45 Dose: 0 mls/hr Documented By: Admin: 01/31/23 12:17 Dose: 100 mls/hr Documented By: Infusion: 01/31/23 07:00 Dose: 0 mls/hr Documented By: Infusion: 01/31/23 06:25 Dose: 0 mls/hr Documented By: Admin: 01/31/23 06:01 Dose: 100 mls/hr Documented By: Infusion: 01/31/23 00:04 Dose: 0 mls/hr Documented By: Admin: 01/30/23 23:17 Dose: 100 mls/hr Documented By: Infusion: 01/30/23 18:05 Dose: 0 mls/hr Documented By: Admin: 01/30/23 16:50 Dose: 100 mls/hr Documented By: Infusion: 01/30/23 13:30 Dose: 0 mls/hr Documented By: Admin: 01/30/23 12:53 Dose: 100 mls/hr Documented By: Infusion: 01/30/23 06:35 Dose: 0 mls/hr Documented By: Admin: 01/30/23 05:51 Dose: 100 mls/hr Documented By: Infusion: 01/30/23 01:46 Dose: 0 mls/hr Documented By: Admin: 01/30/23 00:53 Dose: 100 mls/hr Documented By: Infusion: 01/29/23 17:48 Dose: 0 mls/hr Documented By: Admin: 01/29/23 17:08 Dose: 100 mls/hr Documented By: FLY Insulin Human Lispro (Insulin Lispro 1 Unit/0.01 Ml Unit) 0 unit SQ ACHS DONALD; Protocol Last Admin: 01/31/23 12:16 Dose: 3 units Documented By: Admin: 01/31/23 07:41 Dose: 2 units Documented By: Admin: 01/30/23 20:44 Dose: 2 units Documented By: Admin: 01/30/23 17:01 Dose: 6 units Documented By: Admin: 01/30/23 12:39 Dose: Not Given Documented By: Admin: 01/30/23 07:24 Dose: 1 units Documented By: Admin: 01/29/23 22:42 Dose: Not Given Documented By: Admin: 01/29/23 21:59 Dose: 2 units Documented By: SHANON Methylprednisolone Sodium Succinate (Methylprednisolone Sod Succ 125 Mg/2 Ml Vial) 62.5 mg IV Q12 [facility] Last Admin: 01/31/23 08:56 Dose: 62.5 mg Documented By: Admin: 01/30/23 20:43 Dose: 62.5 mg Documented By: TAMRA Sodium Chloride (0.9 % Sodium Chloride 10 Ml Syringe) 10 ml IV Q8 [facility] Last Admin: 01/31/23 14:18 Dose: 10 ml Documented By: Admin: 01/31/23 06:02 Dose: 10 ml Documented By: Admin: 01/30/23 20:43 Dose: 10 ml Documented By: Admin: 01/30/23 14:50 Dose: 10 ml Documented By: Admin: 01/30/23 05:51 Dose: 10 ml Documented By: Admin: 01/29/23 21:59 Dose: 10 ml Documented By: SHANON Shift Summary 01/31/23 01:33 Shift Summary by Ar Ulrich Pt has not rested much - he states he does not sleep well @ home either. Pt has chronic low back pain, so has a rather high pain tolerance. ABD pain 6-8/10 - [place] 5 (1) PO given last @ 8850. 3x ABD lap sites w/ gauze & film dressings - all are C,D,I. Saline lock to his LT hand - flushed & patent. He is up (I) - gait stable w/o device. Pt voiding QS into urinal. No N/V. No BM - passing flatus. Pt is A&O x4, calm, pleasant, & cooperative. Initialized on 01/31/23 01:33 - END OF NOTE
--- NOTE | 2023-02-02 13:03 | Operative Note ---
DATE OF OPERATION: 01/30/2023 PREOPERATIVE DIAGNOSES: Acute appendicitis with nonspecific colitis. POSTOPERATIVE DIAGNOSES: Nonspecific colitis with normal appendix. PROCEDURE: Diagnostic laparoscopy with appendectomy. SURGEON: Rancho Lezama M.D. FINDINGS: Normal appendix with acute inflammation of the ascending colon and cecum, hemorrhagic fluid in the pelvis. No purulence was found. DESCRIPTION OF PROCEDURE: Under general anesthesia, the patient's abdomen was prepped and draped in a sterile field. A timeout procedure was carried out as per protocol. Supraumbilical midline incision was made and Veress needle was inserted. The abdomen was insufflated with 2.5 liters of CO2. A 12 mm port was placed. Under videoscopic guidance, inspection revealed a very normal appendix at the base of the cecum, extending into the pelvis. The appendix was very soft and pliable, not inflamed or thickened. There was some bloody fluid in the deep pelvis, which appeared to be old. The cecum was thickened and had slightly inflamed serosa. This inflammation extended up the ascending colon. The small bowel was run. I did not find a Meckel's diverticulum. Irrigation was carried out. The appendix was grasped and the mesoappendix was dissected. Endo KAREN stapler was used to staple and remove the appendix. The appendix was placed in an Endopouch and retrieved. Reinspection of the area did not reveal any other pathology. The left colon appeared to be normal. The omentum was pushed into the upper abdomen and there was slight inflammation of the proximal transverse colon, but the rest of the transverse colon appeared to be normal. I did not get a good view of the colon at the splenic flexure. It was felt that no further dissection was needed. CO2 was allowed to escape from the abdomen. Ports were removed. The fascia at the umbilicus was closed with 0 Vicryl. Skin was closed with angel. Tegaderm dressings were placed. The patient tolerated the procedure well. The pelvic fluid was sent for cytology and culture and sensitivity. The patient was awakened and transferred to the postanesthetic care unit in satisfactory condition. LCS:walt Job ID: [id number] Doc ID: [id number] Rancho Lezama M.D.
== END 2023-01-31 16:47 | disposition home or self-care (01) | DRG 341 ==
LOC: ED 13:43 → MEDSUR 13:43
PROVIDERS: ADMIT Family Medicine Adult Medicine; ATTEND Family Medicine Adult Medicine